=== PATIENT | female | born 1985 | race Caucasian/White ===

== ENCOUNTER 2018-03-30 18:54 | Observation (INO) ==
[2018-03-30] MEDS ORDERED: Betamethasone Sod Phos/Acetate Inj 30 MG/5 ML Vial IM SCH (19:45)
[2018-03-30] MEDS ORDERED: Acetaminophen 325 MG Tablet PO PRN (19:45)
--- NOTE | 2018-03-30 19:45 | P.HPOB ---
History of Present Illness Service: Obstetrics Primary Care Physician: NOT REQUIRED Chief Complaint: elevated blood pressures when seen in office, known chronic hypertension History of Present Illness: 32 yo G1 with EDC 04/26/18, 36w1d today, has been seen in office for evaluation with known chronic hypertension, on labetalol 300mg TID since prior to . Had been well controlled until the past few weeks when pressures have started to increase to mild range. Has been seen for twice weekly testing , at today's visit blood pressures in borderline severe range for first time. Patient also has a baseline proteinuria on 24h urine of >500mg in first trimester. Pt denies headaches, vision changes, RUQ pain, has had edema for the past few weeks which pt states is not worse than it has been. Patient does c/o irregular contractions and pelvic pressure, no vaginal bleeding or leakage of fluid, endorses good movement. Weeks Gestation:: 36 Para: 0 : 1 Total # of Miscarriage(s): 0 Total # of Abortions (Spontaneous & Elective): 0 Review of Systems All other systems reviewed negative except as stated in HPI [facility] - Medical History Medical History: Medical History (Last Updated 03/30/18 @ 19:38 by Magdalene Romo MD) Chronic hypertension (Chronic) H/O wisdom tooth extraction - Family History Family History: Family History (Last Updated 03/30/18 @ 19:38 by Magdalene Romo MD) Other No significant family history - Social History I have reviewed the patient's Social History: Yes - Tobacco History Second Hand Smoke Exposure: No Tobacco Use In Past 30 Days: No Smoking Status: Never smoker - Alcohol History How Often Do You Have a Drink Containing Alcohol: Never - Substance Use History Substance History: No History of Abuse - Travel History History of Recent Travel: No Recent Travel in the [place] Within the Last 8 Weeks: No Recent Travel Out of the Country Within the Last 8 Weeks: No Medications and Allergies Allergies Allergy/AdvReac Type Severity Reaction Status Date / Time No Known Allergies Allergy Unverified 03/30/18 19:36 Home Medications Medication Instructions Recorded Confirmed Type PNV cmb#95-ferrous fumarate-FA 1 tab PO DAILY 03/30/18 03/30/18 History [] labetalol 300 mg PO BID 03/30/18 03/30/18 History Exam - Constitutional no acute distress - Routine HEENT Exam Head: Present: normocephalic, atraumatic Eye: Present: EOMI, PERRL ENT: Present: mucous membranes moist, dentition normal - Routine Neck Exam Present: supple, full ROM - Routine Chest/Breast/Axilla Exam Chest wall: Absent: tenderness, mass - Routine Respiratory Exam Absent: accessory muscle use, respiratory distress - Routine Cardiovascular Exam Present: RRR. Absent: bradycardia - Routine Abdominal Exam Present: normoactive bowel sounds Comments: gravid c/w dates - Routine Extremities Exam Present: edema (+1 to mid villar b/l). Absent: cyanosis - Routine Skin Exam Present: intact. Absent: cyanosis - Routine Neurological Exam Present: alert, oriented X3 Results - Labs Group B Strep: pending; done in office 03/26/18 Caprini VTE Risk Assessment Caprini VTE Risk Assessment: No/Low Risk (score <= 1) VTE Pharmacological Exception Reason: Epidural catheter Caprini Risk Assessment Model: Point Value = 1 Point Value = 2 Point Value = 3 Point Value = 5 Age 41-60 Minor surgery BMI > 25 kg/m2 Swollen legs Varicose veins or History of unexplained or recurrent spontaneous Oral contraceptives or hormone replacement Sepsis (< 1 month) Serious lung disease, including pneumonia (< 1 month) Abnormal pulmonary function Acute myocardial infarction Congestive heart failure (< 1 month) History of inflammatory bowel disease Medical patient at bed rest Age 61-74 Arthroscopic surgery Major open surgery (> 45 min) Laparoscopic surgery (> 45 min) Malignancy Confined to bed (> 72 hours) Immobilizing plaster cast Central venous access Age >= 75 History of VTE Family history of VTE Factor V Leiden Prothrombin [id number] Lupus anticoagulant Anticardiolipin antibodies Elevated serum homocysteine Heparin-induced thrombocytopenia Other congenital or acquired thrombophilia Stroke (< 1 month) Elective arthroplasty Hip, pelvis, or leg fracture Acute spinal cord injury (< 1 month) Prophylaxis Regimen: Total Risk Factor Score Risk Level Prophylaxis Regimen 0-1 Low Early ambulation 2 Moderate Order ONE of the following: *Sequential Compression Device (SCD) *Heparin 5000 units SQ BID 3-4 Higher Order ONE of the following medications: *Heparin 5000 units SQ TID *Enoxaparin/Lovenox 40 mg SQ daily (WT < 150 kg, CrCl > 30 mL/min) *Enoxaparin/Lovenox 30 mg SQ daily (WT < 150 kg, CrCl > 10-29 mL/min) *Enoxaparin/Lovenox 30 mg SQ BID (WT < 150 kg, CrCl > 30 mL/min) AND/OR *Sequential Compression Device (SCD) 5 or more Highest Order ONE of the following medications: *Heparin 5000 units SQ TID (Preferred with Epidurals) *Enoxaparin/Lovenox 40 mg SQ daily (WT < 150 kg, CrCl > 30 mL/min) *Enoxaparin/Lovenox 30 mg SQ daily (WT < 150 kg, CrCl > 10-29 mL/min) *Enoxaparin/Lovenox 30 mg SQ BID (WT < 150 kg, CrCl > 30 mL/min) AND *Sequential Compression Device (SCD) Assessment and Plan - Diagnosis (1) Chronic hypertension affecting Code(s): O10.919 - Unspecified pre-existing hypertension complicating , unspecified trimester Status: Acute (2) 36 weeks gestation of Code(s): Z3A.36 - 36 weeks gestation of Status: Acute - Plan 32 yo G1 at 36w1d by LMP c/w first trimester ultrasound, EDC 04/26/18, presents for PreEclampsia workup due to new moderate to severe range BPs when seen in office for testing. 1) CHTN with new moderate to severe range pressures: check PIH labs, order 24h urine, continuous BP monitoring; pt aware if si/sx of severity will need induction; continue home dose of labetalol 300mg TID 2) GBS pending 3) status: 02/11 BPP in office 03/30/18; growth u/s last week EFW 50%tile, vertex, male dispo: not meeting criteria
[2018-03-30 20:32] LABS: Bilirubin,Urine Negative (Negative); Clarity,Urine Clear (Clear); Color,Urine Straw (Yellw/Straw); Glucose,Urine (UA) Negative (Negative); Leukocyte Esterase,Urine Negative (Negative); Mucus,Urine Few /lpf (Occasional); Nitrite,Urine Negative (Negative); Specific Gravity,Urine 1.008 (1.002-1.035); Squamous Epithelial Cell,Urine <1 /hpf (0-5)
[2018-03-30 20:36] LABS: Hematocrit 38.1 % (35.0-46.0); Hemoglobin 13.1 gm/dL (11.6-15.3); Mean Corpuscular HGB Conc 34.3 % (32.0-36.0); Mean Corpuscular Hemoglobin 29.9 pg (27.0-34.0); Mean Corpuscular Volume 87.2 fL (80.0-100.0); Platelet Count 212 th/mm3 (150-450); Red Blood Count 4.37 mil/mm3 (4.00-5.30); Red Cell Distribution Width 13.9 % (11.6-17.2); White Blood Count 12.6 th/mm3 (4.0-11.0)
[2018-03-30 20:53] LABS: Albumin 2.9 g/dL (3.4-5.0); Anion Gap 9 meq/L (5-15); Aspartate Aminotransferase 15 U/L (15-37); Blood Urea Nitrogen 12 mg/dL (7-18); Calcium 9.6 mg/dL (8.5-10.1); Carbon Dioxide 21.9 meq/L (21.0-32.0); Chloride 107 meq/L (98-107); Glomerular Filtration Rate 87 mL/min (>89); Glucose,Random 111 mg/dL (74-106); Potassium 3.8 meq/L (3.5-5.1); Sodium 138 meq/L (136-145); Uric Acid 5.9 mg/dl (2.6-6.0)
[2018-03-30 20:54] LABS: Alanine Aminotransferase 20 U/L (10-53)
[2018-03-30 20:56] LABS: Alkaline Phosphatase 94 U/L (45-117); Lactate Dehydrogenase 167 U/L (84-246); Total Protein 6.9 g/dL (6.4-8.2)
[2018-03-30] MEDS ORDERED: Zolpidem Tartrate 5 MG Tablet PO PRN (21:00)
--- NOTE | 2018-03-31 08:06 | P.OBANTE ---
Subjective Interval History: feeling well; no headache no vision changes no nausea or RUQ pain, no increased edema; + movement, no leakage of fluid or vaginal bleeding, mild irregular contractions Antepartum ROS: Denies: New complaints Objective Vital Signs and I&O: Vital Signs 03/30/18 19:47 03/30/18 19:50 03/30/18 20:05 Temperature 98.0 F Pulse Rate 84 84 Respiratory Rate 18 Blood Pressure 155/98 H 157/97 H 03/30/18 20:40 03/30/18 21:05 03/30/18 21:14 Temperature Pulse Rate 86 85 Respiratory Rate 18 Blood Pressure 168/103 H 150/92 H 03/30/18 21:40 03/30/18 21:57 03/30/18 21:58 Temperature Pulse Rate 83 81 Respiratory Rate 18 Blood Pressure 160/104 H 158/80 H 03/30/18 22:05 03/30/18 22:35 03/30/18 23:10 Temperature Pulse Rate 83 86 85 Respiratory Rate Blood Pressure 145/78 H 143/72 H 145/85 H 03/30/18 23:30 03/30/18 23:34 03/31/18 00:10 Temperature 97.4 F L Pulse Rate 88 85 Respiratory Rate 18 Blood Pressure 141/81 H 141/77 H 03/31/18 01:15 03/31/18 02:10 03/31/18 03:00 Temperature Pulse Rate 84 86 81 Respiratory Rate 18 Blood Pressure 144/83 H 149/86 H 139/79 03/31/18 04:10 03/31/18 05:05 03/31/18 05:14 Temperature 97.7 F Pulse Rate 90 86 Respiratory Rate 18 Blood Pressure 134/83 129/80 03/31/18 06:05 03/31/18 07:10 03/31/18 07:35 Temperature Pulse Rate 81 83 83 Respiratory Rate Blood Pressure 145/91 H 140/85 03/31/18 07:55 03/31/18 07:56 Temperature Pulse Rate 89 Respiratory Rate 17 Blood Pressure Intake & Output 03/30/18 03/31/18 03/31/18 18:59 06:59 18:59 Weight 107.048 kg Lab and Micro Results: Laboratory Results - last 24 hr 03/30/18 03/30/18 03/30/18 19:15 20:16 20:16 WBC 12.6 H RBC 4.37 Hgb 13.1 Hct 38.1 MCV 87.2 MCH 29.9 MCHC 34.3 RDW 13.9 Plt Count 212 MPV 9.0 Sodium 138 Potassium 3.8 Chloride 107 Carbon Dioxide 21.9 Anion Gap 9 BUN 12 Creatinine 0.78 Estimated GFR 87 L Random Glucose 111 H Uric Acid 5.9 Calcium 9.6 Total Bilirubin 0.4 AST 15 ALT 20 Alkaline Phosphatase 94 Lactate Dehydrogenase 167 Total Protein 6.9 Albumin 2.9 L Urine Color Straw Urine Clarity Clear Urine pH 6.0 Ur Specific [place] 1.008 Urine Protein 30 H Urine Glucose (UA) Negative Urine Ketones Negative Urine Occult Blood Small H Urine Nitrate Negative Urine Bilirubin Negative Urine Urobilinogen Less than 2 Ur Leukocyte Esterase Negative Urine RBC Less than 1 Urine WBC Less than 1 Ur Squamous Epith Cells <1 Urine Mucus Few H Micro UA Comment Culture not ind Ur Microscopic Review Not Reportable Urine Culture Comments Culture not ind Physical Exam: GENERAL: Well-nourished, well-developed patient. CARDIOVASCULAR: Regular rate and rhythm without murmurs, gallops, or rubs. RESPIRATORY: Breath sounds equal bilaterally. No accessory muscle use. ABDOMEN/GI: Abdomen soft, non-tender. Fundus: [c/w dates] GENITOURINARY: External Genitalia: intact and normal in appearance Cervix: posterior Dilatation: [1] Effacement: 50] Station: [-3] Presentation: [vtx] Membranes: [intact] Uterine Contractions: [irregular] FHT's: Category: [I] Baseline: [140] Reactive: [y] Variability: [y] Decels: [n] EXTREMITIES: No cyanosis, non-tender, without signs of DVT. Edema stable, +1 to ankles Assessment and Plan - Diagnosis (1) Chronic hypertension affecting Code(s): O10.919 - Unspecified pre-existing hypertension complicating , unspecified trimester Status: Acute (2) 36 weeks gestation of Code(s): Z3A.36 - 36 weeks gestation of Status: Acute - Plan 32 yo G1 at 36w2d by LMP c/w first trimester ultrasound, EDC 04/26/18, presented 03/30/18 for PreEclampsia workup due to new moderate to severe range BPs when seen in office for testing on 03/30/18. 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
[2018-03-31 08:37] VITALS: TEMP 97.9
[2018-03-31 08:52] LABS: Hematocrit 38.3 % (35.0-46.0); Hemoglobin 13.7 gm/dL (11.6-15.3); Mean Corpuscular HGB Conc 35.7 % (32.0-36.0); Mean Corpuscular Hemoglobin 30.5 pg (27.0-34.0); Mean Corpuscular Volume 85.6 fL (80.0-100.0); Mean Platelet Volume 9.3 fL (7.0-11.0); Platelet Count 221 th/mm3 (150-450); Red Blood Count 4.48 mil/mm3 (4.00-5.30); Red Cell Distribution Width 14.1 % (11.6-17.2)
[2018-03-31] MEDS ORDERED: Prenatal Vit/Ca/Iron/Folic Acid Tablet PO SCH (09:00)
[2018-03-31 09:25] LABS: Alanine Aminotransferase 18 U/L (10-53); Albumin 3.1 g/dL (3.4-5.0); Anion Gap 12 meq/L (5-15); Aspartate Aminotransferase 13 U/L (15-37); Blood Urea Nitrogen 12 mg/dL (7-18); Calcium 9.1 mg/dL (8.5-10.1); Carbon Dioxide 18.9 meq/L (21.0-32.0); Chloride 106 meq/L (98-107); Glomerular Filtration Rate Greater Than 89 mL/min (>89); Glucose,Random 115 mg/dL (74-106); Potassium 4.1 meq/L (3.5-5.1); Sodium 137 meq/L (136-145); Uric Acid 6.1 mg/dl (2.6-6.0)
[2018-03-31 09:28] LABS: Alkaline Phosphatase 97 U/L (45-117); Lactate Dehydrogenase 174 U/L (84-246); Total Protein 7.3 g/dL (6.4-8.2)
[2018-03-31 09:51] VITALS: BP 146/88
[2018-03-31 10:55] VITALS: PULSE 100
[2018-03-31 10:57] VITALS: RESP 18
== END 2018-03-31 10:59 | disposition home or self-care (01) ==
LOC: H2E
PROVIDERS: ADMIT Obstetrics & Gynecology; ATTEND Obstetrics & Gynecology

== ENCOUNTER 2018-04-06 08:50 | Inpatient (IN) ==
[2018-04-06 10:24] LABS: Baso % (Auto) 0.3 % (0.0-2.0); Eos # (Auto) 0.1 th/mm3 (0.0-0.4); Eos % (Auto) 0.8 % (0.0-4.0); Hematocrit 36.8 % (35.0-46.0); Hemoglobin 12.9 gm/dL (11.6-15.3); Lymph # (Auto) 1.9 th/mm3 (1.0-4.8); Lymph % (Auto) 16.4 % (9.0-44.0); Mean Corpuscular HGB Conc 35.1 % (32.0-36.0); Mean Corpuscular Hemoglobin 30.3 pg (27.0-34.0); Mean Corpuscular Volume 86.5 fL (80.0-100.0); Mono # (Auto) 1.1 th/mm3 (0.0-0.9); Mono % (Auto) 9.2 % (0.0-8.0); Neut # (Auto) 8.6 th/mm3 (1.8-7.7); Neut % (Auto) 73.3 % (16.0-70.0); Platelet Count 202 th/mm3 (150-450); Red Blood Count 4.25 mil/mm3 (4.00-5.30); Red Cell Distribution Width 14.2 % (11.6-17.2); White Blood Count 11.7 th/mm3 (4.0-11.0)
[2018-04-06 10:31] LABS: Bilirubin,Urine Negative (Negative); Clarity,Urine Clear (Clear); Color,Urine Straw (Yellw/Straw); Glucose,Urine (UA) Negative (Negative); Leukocyte Esterase,Urine Negative (Negative); Mucus,Urine Few /lpf (Occasional); Nitrite,Urine Negative (Negative); Specific Gravity,Urine 1.003 (1.002-1.035); Squamous Epithelial Cell,Urine 1 /hpf (0-5)
[2018-04-06] MEDS ORDERED: Oxytocin 30 Units/500ml Premix 30 UNITS/500 ML BAG IV.CONT PRN (10:32)
[2018-04-06 10:36] LABS: Amphetamine Urine With Conf Neg (Neg); Benzodiazepine Urine With Conf Neg (Neg)
[2018-04-06] MEDS ORDERED: Naloxone Inj 0.4 MG/ML Vial IV.PUSH PRN (10:36)
[2018-04-06] MEDS ORDERED: Oxytocin 30 Units/500ml Premix 30 UNITS/500 ML BAG IV.SIG ONE (10:36)
[2018-04-06] MEDS ORDERED: fentaNYL Citrate Inj 100 MCG/2 ML Ampul IV.PUSH PRN ×2 (10:36)
[2018-04-06] MEDS ORDERED: Citric Acid/Sodium Citrate Liq 30 ML UDC PO SCH (10:45)
[2018-04-06] MEDS ORDERED: Lidocaine 1% Inj 50 ML Vial ONE (10:46)
[2018-04-06 10:47] LABS: Alanine Aminotransferase 19 U/L (10-53); Anion Gap 13 meq/L (5-15); Aspartate Aminotransferase 14 U/L (15-37); Blood Urea Nitrogen 15 mg/dL (7-18); Calcium 8.9 mg/dL (8.5-10.1); Carbon Dioxide 22.3 meq/L (21.0-32.0); Chloride 106 meq/L (98-107); Glomerular Filtration Rate Greater Than 89 mL/min (>89); Glucose,Random 102 mg/dL (74-106); Potassium 3.8 meq/L (3.5-5.1); Sodium 141 meq/L (136-145)
[2018-04-06 10:49] LABS: Alkaline Phosphatase 96 U/L (45-117); Total Protein 6.7 g/dL (6.4-8.2)
[2018-04-06] MEDS ORDERED: Sod Chloride 0.9% Inj 1,000 ML IV.CONT PRN (11:11)
[2018-04-06] MEDS ORDERED: Sodium Chlor 0.9% Inj 500 ML IV.SIG PRN (11:11)
--- NOTE | 2018-04-06 11:43 | P.HPOB ---
History of Present Illness Service: Obstetrics Primary Care Physician: Floyd Amaro Chief Complaint: Chronic hypertension with superimposed pre-eclampsia; labor induction at te History of Present Illness: 32 yo G1 with dewey IUP at 37w1d by LMP, EDC 04/26/18, presents for scheduled term induction due to chronic hypertension with recent worsening blood pressures despite oral labetalol 300mg TID (was on prior to ) and worsening proteinuria, 563mg on 24h urine with 28 weeks labs, increased from 214mg at baseline. Patient has been asymptomatic except increased swelling and fatigue, no vision change no headaches no nausea or RUQ pain. Male fetus, has been receiving twice weekly testing since 28 weeks with all testing reassuring. EFW 50%tile at 35 weeks, 5#7oz. Weeks Gestation:: 37 Para: 0 : 1 Last menstrual period: 07/20/17 Total # of Miscarriage(s): 0 Total # of Abortions (Spontaneous & Elective): 0 - Inpatient Certification I certify that the inpatient services were ordered in accordance with Medicare regulations governing the order. This includes certification that hospital inpatient services are reasonable and necessary and in the case of services not specified as inpatient-only under 42 CFR 419.22(n), that they are appropriately provided as inpatient services in accordance to with the 2-midnight benchmark under 43 CFR 412.3(e) Estimated Total Length of Stay (Days): 5 Plans for Post Hospital Care: Home Review of Systems All other systems reviewed negative except as stated in HPI [facility] - Medical History Medical History: Medical History (Last Updated 04/06/18 @ 11:38 by Magdalene Romo MD) Chronic hypertension (Chronic) H/O wisdom tooth extraction - Family History Family History: Family History (Last Updated 03/30/18 @ 19:38 by Magdalene Romo MD) Other No significant family history - Social History I have reviewed the patient's Social History: Yes - Tobacco History Second Hand Smoke Exposure: No Tobacco Use In Past 30 Days: No Smoking Status: Never smoker - Alcohol History How Often Do You Have a Drink Containing Alcohol: Never - Substance Use History Substance History: No History of Abuse - Travel History History of Recent Travel: No Medications and Allergies Active Medications: Active Medications Citric Acid/Sodium Citrate (Sodium Citrate/Citric Acid Liq) 30 ml PO [employer] KRISTINA Stop: 04/10/18 10:44 Fentanyl Citrate (Fentanyl Inj) 50 mcg IV.PUSH Q1H PRN PRN Reason: Pain Scale 3 - 5 Fentanyl Citrate (Fentanyl Inj) 100 mcg IV.PUSH Q1H PRN PRN Reason: PAIN SCALE 6 TO 10 Lactated Ringer's (Lr 1000 Ml Inj) 1,000 mls @ 125 mls/hr IV.SIG .Q8H KRISTINA Last Admin: 04/06/18 10:51 Dose: 125 mls/hr Oxytocin (Pitocin 30 Units/Ns 500 Ml Premix) 30 units in 500 mls @ 2 mls/hr IV.CONT TITRATE PRN; Protocol PRN Reason: For induction of labor Last Admin: 04/06/18 10:51 Dose: 2 milliunit/min, 2 mls/hr Sodium Chloride (Ns Inj) 500 mls @ 1,000 mls/hr IV.SIG UNSCH PRN PRN Reason: SEE LABEL COMMENTS Sodium Chloride (Ns Inj) 1,000 mls @ 100 mls/hr IV.CONT .Q10H PRN PRN Reason: SEE LABEL COMMENTS Lactated Ringer's (Lr 1000 Ml Inj) 1,000 mls @ 3,000 mls/hr IV.SIG UNSCH PRN PRN Reason: compromise or epidural Lidocaine HCl (Xylocaine 1% Inj) 0.1 ml I-DERMAL PRN PRN PRN Reason: For IV start Stop: 04/09/18 10:35 Lidocaine HCl (Xylocaine 1% Inj) 10 ml INFILTRATN PRN PRN PRN Reason: For episiotomy repair Stop: 04/08/18 10:35 Mineral Oil (Muri-Lube Oil) 10 ml TOPICAL PRN PRN PRN Reason: PRN perineal massage Naloxone HCl (Narcan Inj) 0.1 mg IV.PUSH Q2M PRN PRN Reason: for opiate reversal Ondansetron HCl (Zofran Inj) 4 mg IV.PUSH Q6H PRN PRN Reason: NAUSEA OR VOMITING Allergies Allergy/AdvReac Type Severity Reaction Status Date / Time No Known Allergies Allergy Verified 04/06/18 10:32 Home Medications Medication Instructions Recorded Confirmed Type PNV cmb#95-ferrous fumarate-FA 1 tab PO DAILY 03/30/18 04/06/18 History [] labetalol 300 mg PO TID 03/30/18 04/06/18 History Exam Vital signs: Vital Signs 04/06/18 09:36 04/06/18 11:00 Pulse Rate 83 75 Respiratory Rate 18 Blood Pressure 149/103 H 149/103 H Intake & Output 04/05/18 04/06/18 04/06/18 18:59 06:59 18:59 Weight 107 kg Other: Weight On Admission 107 kg - Constitutional no acute distress - Routine HEENT Exam Head: Present: normocephalic, atraumatic Eye: Present: EOMI, conjunctivae pink ENT: Present: mucous membranes moist - Routine Neck Exam Present: supple, full ROM - Routine Chest/Breast/Axilla Exam Chest wall: Absent: tenderness, mass - Routine Respiratory Exam Absent: accessory muscle use, decreased breath sounds - Routine Cardiovascular Exam Present: RRR. Absent: bradycardia - Routine Abdominal Exam Present: normoactive bowel sounds Comments: gravid consistent with dates - Routine Exam Comments: 50/-3 posterior soft - Routine Extremities Exam Present: edema (+2 to mid-shins b/l). Absent: cyanosis - Routine Skin Exam Absent: cyanosis, erythema - Routine Neurological Exam Present: alert, oriented X3 Results - Labs CBC & Chem 7: 04/06/18 10:10 04/06/18 10:10 Labs: Laboratory Results - last 24 hr 04/06/18 04/06/18 04/06/18 10:10 10:10 10:10 WBC 11.7 H RBC 4.25 Hgb 12.9 Hct 36.8 MCV 86.5 MCH 30.3 MCHC 35.1 RDW 14.2 Plt Count 202 MPV 9.0 Neut % (Auto) 73.3 H Lymph % (Auto) 16.4 [place] % (Auto) 9.2 H Eos % (Auto) 0.8 Baso % (Auto) 0.3 Neut # (Auto) 8.6 H Lymph # (Auto) 1.9 [place] # (Auto) 1.1 H Eos # (Auto) 0.1 Baso # (Auto) 0.0 WBC Differential . Differential Comment Auto diff final Sodium Potassium Chloride Carbon Dioxide Anion Gap BUN Creatinine Estimated GFR Random Glucose Calcium Total Bilirubin AST ALT Alkaline Phosphatase Total Protein Albumin Urine Color Straw Urine Clarity Clear Urine pH 6.0 Ur Specific [place] 1.003 Urine Protein Negative Urine Glucose (UA) Negative Urine Ketones Negative Urine Occult Blood Negative Urine Nitrate Negative Urine Bilirubin Negative Urine Urobilinogen Less than 2 Ur Leukocyte Esterase Negative Urine RBC Less than 1 Urine WBC Less than 1 Ur Squamous Epith Cells 1 Urine Mucus Few H Micro UA Comment Culture not ind Ur Microscopic Review Not Reportable Urine Culture Comments Culture not ind Urine Opiates Screen Ur Barbiturates Screen Ur Amphetamine Screen U Benzodiazepines Scrn Urine Cocaine Screen U Cannabinoids Screen Blood Type O Positive Blood Type Recheck Required 04/06/18 04/06/18 10:10 10:10 WBC RBC Hgb Hct MCV MCH MCHC RDW Plt Count MPV Neut % (Auto) Lymph % (Auto) [place] % (Auto) Eos % (Auto) Baso % (Auto) Neut # (Auto) Lymph # (Auto) [place] # (Auto) Eos # (Auto) Baso # (Auto) WBC Differential Differential Comment Sodium 141 Potassium 3.8 Chloride 106 Carbon Dioxide 22.3 Anion Gap 13 BUN 15 Creatinine 0.70 Estimated GFR Greater than 89 Random Glucose 102 Calcium 8.9 Total Bilirubin 0.5 AST 14 L ALT 19 Alkaline Phosphatase 96 Total Protein 6.7 D Albumin 3.0 L Urine Color Urine Clarity Urine pH Ur Specific [place] Urine Protein Urine Glucose (UA) Urine Ketones Urine Occult Blood Urine Nitrate Urine Bilirubin Urine Urobilinogen Ur Leukocyte Esterase Urine RBC Urine WBC Ur Squamous Epith Cells Urine Mucus Micro UA Comment Ur Microscopic Review Urine Culture Comments Urine Opiates Screen Neg Ur Barbiturates Screen Neg Ur Amphetamine Screen Neg U Benzodiazepines Scrn Neg Urine Cocaine Screen Neg U Cannabinoids Screen Neg Blood Type Blood Type Recheck Group B Strep: Negative Caprini VTE Risk Assessment Caprini VTE Risk Assessment: No/Low Risk (score <= 1) VTE Pharmacological Exception Reason: Epidural catheter Caprini Risk Assessment Model: Point Value = 1 Point Value = 2 Point Value = 3 Point Value = 5 Age 41-60 Minor surgery BMI > 25 kg/m2 Swollen legs Varicose veins or History of unexplained or recurrent spontaneous Oral contraceptives or hormone replacement Sepsis (< 1 month) Serious lung disease, including pneumonia (< 1 month) Abnormal pulmonary function Acute myocardial infarction Congestive heart failure (< 1 month) History of inflammatory bowel disease Medical patient at bed rest Age 61-74 Arthroscopic surgery Major open surgery (> 45 min) Laparoscopic surgery (> 45 min) Malignancy Confined to bed (> 72 hours) Immobilizing plaster cast Central venous access Age >= 75 History of VTE Family history of VTE Factor V Leiden Prothrombin [id number] Lupus anticoagulant Anticardiolipin antibodies Elevated serum homocysteine Heparin-induced thrombocytopenia Other congenital or acquired thrombophilia Stroke (< 1 month) Elective arthroplasty Hip, pelvis, or leg fracture Acute spinal cord injury (< 1 month) Prophylaxis Regimen: Total Risk Factor Score Risk Level Prophylaxis Regimen 0-1 Low Early ambulation 2 Moderate Order ONE of the following: *Sequential Compression Device (SCD) *Heparin 5000 units SQ BID 3-4 Higher Order ONE of the following medications: *Heparin 5000 units SQ TID *Enoxaparin/Lovenox 40 mg SQ daily (WT < 150 kg, CrCl > 30 mL/min) *Enoxaparin/Lovenox 30 mg SQ daily (WT < 150 kg, CrCl > 10-29 mL/min) *Enoxaparin/Lovenox 30 mg SQ BID (WT < 150 kg, CrCl > 30 mL/min) AND/OR *Sequential Compression Device (SCD) 5 or more Highest Order ONE of the following medications: *Heparin 5000 units SQ TID (Preferred with Epidurals) *Enoxaparin/Lovenox 40 mg SQ daily (WT < 150 kg, CrCl > 30 mL/min) *Enoxaparin/Lovenox 30 mg SQ daily (WT < 150 kg, CrCl > 10-29 mL/min) *Enoxaparin/Lovenox 30 mg SQ BID (WT < 150 kg, CrCl > 30 mL/min) AND *Sequential Compression Device (SCD) Assessment and Plan - Diagnosis (1) Chronic hypertension with superimposed preeclampsia Code(s): O11.9 - Status: Acute (2) 37 weeks gestation of Code(s): Z3A.37 - Status: Acute - Plan 32 yo G1 with dewey IUP at 37w1d admit for term induction due to chronic hypertension with superimposed pre-eclampsia without severe features. 1) CHTN with NICOLETTE: PIH labs ordered on admission, wnl, rules in by 24h urine criteria/proteinuria. No severe symptoms. Clear diet for now, pitocin induction, pt aware of risks including risk of failure, risk of need for , continue home dose of labetalol 300mg TID 2) GBS negative 3) status: vertex, male, EFW 7#, normal anatomy, normal twice weekly testing since 28 wks Discharge Plannin-3d
[2018-04-06] MEDS ORDERED: Labetalol 100 MG Tablet PO ONE (15:00)
--- NOTE | 2018-04-06 17:12 | P.OBGPN ---
To bedside to evaluate patient, SVE remains unchanged /-3 posterior. Pitocin at 12 milliunits/minute, contractions irregular. BPs remain elevated but no severe, pt asymptomatic, denies headache, vision changes, RUQ pain, nausea; edema is stable. At this time d/w pt stop pitocin, let eat dinner, place cervidil in 1 hour, plan to keep in 12h overnight as long as no hyperstimulation. Reviewed w pt will recheck in AM, continue to monitor closely.
[2018-04-07] MEDS ORDERED: ceFAZolin 2 GM Premix Inj 2 GM/50 ML PIGGYBACK IV.SIG PRN (08:28)
[2018-04-07] MEDS ORDERED: Citric Acid/Sodium Citrate Liq 30 ML UDC PO SCH (08:30)
--- NOTE | 2018-04-07 08:33 | P.OBGPN ---
To bedside to evaluate patient. Despite 12h of cervidil overnight no cervical change, remains 2/50/-3 posterior. Patient failed attempt at pitocin induction yesterday, now failed cervidil overnight. D/w pt options, trial of may bulb, re-trial of pitocin, cytotec. Pt declines any additional trial, desires . Pt does have narrow pelvis and suspect this may be contributing to inability to successfully induce labor. Team notified, orders placed, plan for primary for failed labor induction for chronic hypertension with superimposed preeclampsia.
[2018-04-07] MEDS ORDERED: Sodium Chloride 0.9% 2 ML Flush PRN IV.FLUSH (08:39)
[2018-04-07] MEDS ORDERED: Morphine Sulfate PF Inj 5 MG/10 ML Ampul ONE (08:49)
[2018-04-07] MEDS ORDERED: Phenylephrine/NS 1000 MCG/10ML Syringe IV.PUSH ONE (08:53)
[2018-04-07] MEDS ORDERED: Sodium Chloride 0.9% 2 ML Flush BID IV.FLUSH SCH (09:00)
[2018-04-07] MEDS ORDERED: Acetaminophen 325 MG Tablet PO PRN (09:51)
[2018-04-07] MEDS ORDERED: Zolpidem Tartrate 5 MG Tablet PO PRN (09:51)
--- NOTE | 2018-04-07 09:58 | P.OBDELI ---
Procedure Note - Pre Op Diagnosis (1) Failed induction of labor (2) Chronic hypertension with superimposed preeclampsia (3) 37 weeks gestation of Performed by: Magdalene Romo MD Procedure: Primary Low Transverse Section Indication for Delivery: Other (failed labor induction for chronic hypertension with superimposed preeclampsia) Informed Consent Obtained: For anesthesia, For procedure Confirmed Correct: Patient, Procedure, Site, Time-out taken Anesthesia: Spinal Medication Prior to Procedure: As documented in eMAR Monitoring During Procedure: Blood pressure monitoring, Pulse oximetry Urinary Catheter: Inserted using sterile technique, To dependent drainage, ml urine output (50), Other (pt had voided a large amount just prior to coming to operating room) Sterile Preparation: Duraprep, In usual fashion, With drapes to expose affected area Position: Supine with wedge to right side - Operative Features Skin Incision: Pfannenstiel Uterine Incision: Low transverse w/knife / scissors Membranes Ruptured: Artificially, Amount of liquid (minimal), Appearance of fluid (clear) Presentation: Occiput posterior Status of : Viable, Cord blood, Nursery present Placenta Delivered: Intact Medications: Antibiotics (ancef 2g IV preop) Estimated blood loss (mL): 700 Procedure Tolerated: Well Maternal Condition: Stable Baby Condition: Stable Procedure in Detail: see dictated op note for full details - Infant : Male Male A Delivery Date: 04/07/18 Infant Delivery Time: 09:21 Weight: 2.77 kg Delivery of : Uneventful score (1 min): 8 score (5 min): 9
[2018-04-07] MEDS ORDERED: Oxytocin 30 Units/500ml Premix 30 UNITS/500 ML BAG IV.SIG ONE (10:00)
--- NOTE | 2018-04-07 10:33 | MP ---
cc: Magdalene Romo MD DATE OF OPERATION: 04/07/2018 PREOPERATIVE DIAGNOSES: 1. Marie intrauterine at 37 weeks 2 days. 2. Chronic hypertension with superimposed preeclampsia. 3. Failed induction of labor. POSTOPERATIVE DIAGNOSES: 1. Marie intrauterine at 37 weeks 2 days. 2. Chronic hypertension with superimposed preeclampsia. 3. Failed induction of labor. 4. Postoperative day number zero. INDICATIONS: Linda Blevins is a 32-year-old 1, now para 1-0-0-1, who was seen and evaluated throughout her course with complication of chronic hypertension prior to for which she had been controlled on labetalol 300 mg 3 times daily. At around 35 weeks, the patient started to have increasing blood pressures bordering on severe range. She did rule in for preeclampsia based on protein criteria and was brought in for induction at 37 weeks. She failed attempted induction with both Cervidil and Pitocin and it was discussed with the patient options including additional induction methods versus proceeding with . The patient desired . PROCEDURE PERFORMED: Primary low transverse delivery. SURGEON: Magdalene Romo MD. ANESTHESIA: Spinal. ESTIMATED BLOOD LOSS: 700 mL. IV FLUID REPLACEMENT: 1400 mL. URINE OUTPUT: 50 mL clear urine. DRAINS: Morales bag at the end the procedure draining clear urine. COMPLICATIONS: None. COUNTS: Sponge, lap, instrument, and needle are correct x 2. SPECIMEN: None. INTRAOPERATIVE FINDINGS: Include a vigorous viable male weighing 2770 grams correlating to 6 pounds 2 ounces, Apgars of 8 and 9, clear amniotic fluid. Normal-appearing placenta. Normal-appearing uterus, bilateral fallopian tubes, and ovaries. PROPHYLAXIS: Ancef 2 grams IV was given preoperatively. SCDs were on and functioning throughout the entire case. DESCRIPTION OF PROCEDURE: After reviewing the informed consent, the patient was taken to the operating suite, where a timeout was performed to identify the patient, planned procedure, any known allergies to drugs or drug products. The patient was placed sitting up on the exam table and spinal anesthesia was administered without difficulty and found to be adequate. The patient was then laid in dorsal supine position and abdomen and perineum were prepped and draped in normal sterile fashion. Morales catheter was placed using sterile technique. Attention was turned abdominally where a Pfannenstiel-type skin incision was made with a scalpel, carried down to the underlying layer of fascia with the Bovie. The fascia was incised in the midline and the incision was extended laterally using Munroe scissors. The fascia was elevated both superiorly and inferiorly and rectus muscle dissected off sharply with Munroe scissors. Rectus muscles were then in the midline. Peritoneum was identified and entered bluntly with surgeon's index finger. Incision was extended with good visualization of intra-abdominal contents. Bladder blade was placed. A bladder flap was not made. A low transverse uterine incision was made. It was extended bluntly. Clear amniotic fluid was encountered. Infant's head was grasped and elevated out through the incision. Direct OP presentation. With gentle fundal pressure, the rest of the easily delivered and was immediately crying upon delivery. Delayed cord clamping of 45 seconds was performed. The was then handed off to awaiting nursery staff. Cord blood sample was taken. Placenta was delivered spontaneously with gentle cord traction and fundal massage. Uterus was then exteriorized, cleared of all clots and debris with sterile moist lap sponges. Hysterotomy was repaired in a double-layer, first in a running locked layer, then an imbricating layer with #1 chromic. Posterior cul-de-sac was irrigated copiously with warm sterile saline. The uterus was then returned to the abdomen. Excellent hemostasis was noted at the repaired hysterotomy. Additional irrigation with suction was performed of the gutters. A layer of Interceed was placed over the repaired hysterotomy to act as an adhesion barrier. Peritoneum was closed in a running layer with 2-0 chromic. Fascia was closed in a running layer with #1 Vicryl. Subcutaneous tissue was cleaned and dried and a series of interrupted sutures using a 2-0 chromic was used to close subcutaneous space. The skin was closed in a subcuticular fashion with 3-0 Monocryl. Steri-Strips were then placed, as was a pressure dressing. The procedure concluded at this point. The patient tolerated the procedure well. is nursery status. DISPOSITION: Patient's estimated length of stay is 2-3 postoperative days. MD RAHEEM Croft/michelle , 10:02 AM , 10:12 AM SUSAN
[2018-04-07] MEDS ORDERED: Naloxone Inj 0.4 MG/ML Vial IV.PUSH PRN (12:02)
[2018-04-07] MEDS ORDERED: Oxytocin 30 Units/500ml Premix 30 UNITS/500 ML BAG IV.SIG PRN (14:51)
[2018-04-07] MEDS: Senna/Docusate Sodium 8.6/50 MG Tablet PO SCH (20:28)
[2018-04-07 20:56] VITALS: O2SAT 97
[2018-04-08 06:33] LABS: Baso % (Auto) 0.2 % (0.0-2.0); Eos % (Auto) 0.3 % (0.0-4.0); Hematocrit 34.1 % (35.0-46.0); Hemoglobin 11.7 gm/dL (11.6-15.3); Lymph # (Auto) 1.9 th/mm3 (1.0-4.8); Lymph % (Auto) 12.4 % (9.0-44.0); Mean Corpuscular HGB Conc 34.4 % (32.0-36.0); Mean Corpuscular Hemoglobin 29.9 pg (27.0-34.0); Mean Corpuscular Volume 87.1 fL (80.0-100.0); Mean Platelet Volume 8.8 fL (7.0-11.0); Mono # (Auto) 1.4 th/mm3 (0.0-0.9); Mono % (Auto) 9.1 % (0.0-8.0); Neut # (Auto) 11.9 th/mm3 (1.8-7.7); Platelet Count 182 th/mm3 (150-450); Red Blood Count 3.92 mil/mm3 (4.00-5.30); Red Cell Distribution Width 14.4 % (11.6-17.2); White Blood Count 15.3 th/mm3 (4.0-11.0)
[2018-04-08] MEDS: Senna/Docusate Sodium 8.6/50 MG Tablet PO SCH ×2 (09:44→20:47)
[2018-04-08] MEDS: Simethicone 80 MG Chew Tablet PO PRN ×2 (09:44→18:27)
--- NOTE | 2018-04-08 11:23 | P.PNOB ---
Subjective Post op day: 1 Interval history: POD#1; Doing well, no c/o Objective Vital Signs/I&O: Vital Signs 04/07/18 11:30 04/07/18 15:10 04/07/18 15:20 Temperature 97.6 F 98.0 F Pulse Rate 64 78 Respiratory Rate 20 20 Blood Pressure 150/93 H 149/86 H Pulse Oximetry 04/07/18 20:56 04/07/18 21:04 04/08/18 02:09 Temperature 98.4 F 98.4 F 98.6 F Pulse Rate 88 88 85 Respiratory Rate 18 18 20 Blood Pressure 142/76 H 142/76 H 128/77 Pulse Oximetry 97 04/08/18 08:41 Temperature 97.8 F Pulse Rate 74 Respiratory Rate 16 Blood Pressure 121/78 Pulse Oximetry Result Diagrams: 04/08/18 06:04 04/06/18 10:10 Objective Remarks: GENERAL: Well-nourished, well-developed patient. CARDIOVASCULAR: Regular rate and rhythm without murmurs, gallops, or rubs. RESPIRATORY: Breath sounds equal bilaterally. No accessory muscle use. ABDOMEN/GI: Abdomen soft, non-tender, bowel sounds present. Incision: Clean, dry and intact. Fundus: Firm, non-tender at umbilicus. GENITOURINARY: Light to moderate bleeding. EXTREMITIES: No cyanosis or edema, non-tender, without signs of DVT. Medications and IVs: Active Medications Acetaminophen (Tylenol) 650 mg PO Q6H PRN PRN Reason: PAIN SCALE 1 TO 2 Diphenhydramine HCl (Benadryl Inj) 25 mg IV.PUSH Q6H PRN PRN Reason: MILD TO MODERATE ITCHING Stop: 04/08/18 12:01 Last Admin: 04/07/18 12:11 Dose: 25 mg Diphenhydramine HCl (Benadryl) 50 mg PO Q6H PRN PRN Reason: MILD TO MODERATE ITCHING Stop: 04/08/18 12:01 Last Admin: 04/08/18 05:56 Dose: 50 mg Oxytocin (Pitocin 30 Units/Ns 500 Ml Premix) 30 units in 500 mls @ 100 mls/hr IV.SIG UNSCH PRN PRN Reason: Heavy bleeding Ibuprofen (Motrin) 800 mg PO Q8H PRN PRN Reason: cramping Last Admin: 04/08/18 09:44 Dose: 800 mg Ketorolac Tromethamine (Toradol Inj) 30 mg IM Q6H PRN PRN Reason: SEE LABEL COMMENTS Stop: 04/12/18 09:50 Labetalol HCl (Trandate) 300 mg PO TID@0700,1400,2100 [facility] Last Admin: 04/08/18 09:44 Dose: 300 mg Measles/Mumps/Rubella Vaccine Live (M-M-R Ii Vaccine Inj) 0.5 ml SQ .ONCE ONE Stop: 04/08/18 16:01 Miscellaneous Information ([facility]) 1 each OTHER UNSCH PRN PRN Reason: SEE LABEL COMMENTS Stop: 04/08/18 12:01 Miscellaneous Information ([facility]) 1 each OTHER UNSCH PRN PRN Reason: SEE LABEL COMMENTS Stop: 04/08/18 12:01 Naloxone HCl (Narcan Inj) 0.4 mg IV.PUSH UNSCH PRN PRN Reason: SEE LABEL COMMENTS Stop: 04/08/18 12:01 Ondansetron HCl (Zofran Inj) 4 mg IV.PUSH Q6H PRN PRN Reason: NAUSEA OR VOMITING Oxycodone/Acetaminophen (Percocet 5/325 Mg) 1 tab PO Q4H PRN PRN Reason: PAIN SCALE 3 TO 5 Last Admin: 04/08/18 09:45 Dose: 1 tab Oxycodone/Acetaminophen (Percocet 5/325 Mg) 2 tab PO Q4H PRN PRN Reason: PAIN SCALE 6 TO 10 Senna/Docusate Sodium (Emily-Colace) 2 tab PO Q12H [facility] Last Admin: 04/08/18 09:44 Dose: 2 tab Simethicone (Mylicon Chew) 80 mg PO QID PRN PRN Reason: FLATULENCE Last Admin: 04/08/18 09:44 Dose: 80 mg Sodium Chloride (Ns Flush) 2 ml IV.FLUSH BID [facility] Last Admin: 04/07/18 20:28 Dose: Not Given Sodium Chloride (Ns Flush) 2 ml IV.FLUSH UNSCH PRN PRN Reason: FLUSH AFTER USING IV ACCESS Zolpidem Tartrate (Ambien) 5 mg PO HS PRN PRN Reason: INSOMNIA Assessment and Plan - Diagnosis (1) Chronic hypertension with superimposed preeclampsia Code(s): O11.9 - Pre-existing hypertension with pre-eclampsia, unspecified trimester Status: Acute (2) 37 weeks gestation of Code(s): Z3A.37 - 37 weeks gestation of Status: Acute - Plan 32 yo G1 with dewey IUP at 37w1d admit for term induction due to chronic hypertension with superimposed pre-eclampsia without severe features. 1) CHTN with NICOLETTE: PIH labs ordered on admission, wnl, rules in by 24h urine criteria/proteinuria. No severe symptoms. Clear diet for now, pitocin induction, pt aware of risks including risk of failure, risk of need for , continue home dose of labetalol 300mg TID 2) GBS negative 3) status: vertex, male, EFW 7#, normal anatomy, normal twice weekly testing since 28 wks 04/08/18 - POD#1, stable ,doing well. anticipate discharge for POD#2-3 Discharge Plannin-3d
[2018-04-08] MEDS ORDERED: Measles/Mumps/Rubella Vaccine Inj 0.5 ML Vial SQ ONE (16:00)
[2018-04-08] MEDS ORDERED: Diphtheria/Tetanus/Pertussis Vaccine Inj 0.5 ML Syringe IM ONE (18:45)
--- NOTE | 2018-04-09 08:04 | P.PNOB ---
Subjective Post op day: 2 Interval history: doing well, no EDMONDS, no BV, no CP, desires discharge today Objective Vital Signs/I&O: Vital Signs 04/08/18 08:41 04/08/18 19:50 Temperature 97.8 F 97.9 F Pulse Rate 74 86 Respiratory Rate 16 19 Blood Pressure 121/78 145/92 H Result Diagrams: 04/08/18 06:04 04/06/18 10:10 Objective Remarks: GENERAL: Well-nourished, well-developed patient. CARDIOVASCULAR: Regular rate and rhythm without murmurs, gallops, or rubs. RESPIRATORY: Breath sounds equal bilaterally. No accessory muscle use. ABDOMEN/GI: Abdomen soft, non-tender, bowel sounds present. Incision: Clean, dry and intact. Fundus: Firm, non-tender at umbilicus. GENITOURINARY: Light to moderate bleeding. EXTREMITIES: No cyanosis or edema, non-tender, without signs of DVT. Medications and IVs: Active Medications Acetaminophen (Tylenol) 650 mg PO Q6H PRN PRN Reason: PAIN SCALE 1 TO 2 Diphenhydramine HCl (Benadryl) 50 mg PO Q6H PRN PRN Reason: ITCHING Last Admin: 04/08/18 22:11 Dose: 50 mg Oxytocin (Pitocin 30 Units/Ns 500 Ml Premix) 30 units in 500 mls @ 100 mls/hr IV.SIG UNSCH PRN PRN Reason: Heavy bleeding Ibuprofen (Motrin) 800 mg PO Q8H PRN PRN Reason: cramping Last Admin: 04/09/18 02:00 Dose: 800 mg Ketorolac Tromethamine (Toradol Inj) 30 mg IM Q6H PRN PRN Reason: SEE LABEL COMMENTS Stop: 04/12/18 09:50 Labetalol HCl (Trandate) 300 mg PO TID@0700,1400,2100 [facility] Last Admin: 04/08/18 20:48 Dose: 300 mg Ondansetron HCl (Zofran Inj) 4 mg IV.PUSH Q6H PRN PRN Reason: NAUSEA OR VOMITING Oxycodone/Acetaminophen (Percocet 5/325 Mg) 1 tab PO Q4H PRN PRN Reason: PAIN SCALE 3 TO 5 Last Admin: 04/08/18 14:28 Dose: 1 tab Oxycodone/Acetaminophen (Percocet 5/325 Mg) 2 tab PO Q4H PRN PRN Reason: PAIN SCALE 6 TO 10 Last Admin: 04/09/18 06:16 Dose: 2 tab Senna/Docusate Sodium (Emily-Colace) 2 tab PO Q12H [facility] Last Admin: 04/08/18 20:47 Dose: 2 tab Simethicone (Mylicon Chew) 80 mg PO QID PRN PRN Reason: FLATULENCE Last Admin: 04/08/18 18:27 Dose: 80 mg Sodium Chloride (Ns Flush) 2 ml IV.FLUSH BID [facility] Last Admin: 04/08/18 22:11 Dose: Not Given Sodium Chloride (Ns Flush) 2 ml IV.FLUSH UNSCH PRN PRN Reason: FLUSH AFTER USING IV ACCESS Zolpidem Tartrate (Ambien) 5 mg PO HS PRN PRN Reason: INSOMNIA Assessment and Plan - Diagnosis (1) Chronic hypertension with superimposed preeclampsia Code(s): O11.9 - Pre-existing hypertension with pre-eclampsia, unspecified trimester Status: Acute (2) 37 weeks gestation of Code(s): Z3A.37 - 37 weeks gestation of Status: Acute (3) delivery delivered Code(s): O82 - Encounter for delivery without indication Status: Acute - Plan 32 yo G1 with dewey IUP at 37w1d admit for term induction due to chronic hypertension with superimposed pre-eclampsia without severe features. 1) CHTN with NICOLETTE: PIH labs ordered on admission, wnl, rules in by 24h urine criteria/proteinuria. No severe symptoms, continue home dose of labetalol 300mg TID 2) GBS negative 3) status: vertex, male, EFW 7#, normal anatomy, normal twice weekly testing since 28 wks 04/09/18 - POD#2, stable ,doing well. anticipate discharge for POD#2-3 Discharge Plannin-3d - Attending Attestation pt seen by me
[2018-04-09] MEDS: Senna/Docusate Sodium 8.6/50 MG Tablet PO SCH (09:13)
[2018-04-09 09:17] VITALS: RESP 20; TEMP 98.2
[2018-04-09 13:10] VITALS: BP 159/94; PULSE 94
== END 2018-04-09 15:48 | disposition home or self-care (01) ==
LOC: H2E 08:50 → H1EA 04-07 11:17
PROVIDERS: ADMIT Obstetrics & Gynecology; ATTEND Obstetrics & Gynecology